=== PATIENT | female | born 1990 | race Caucasian/White ===

== ENCOUNTER 2018-12-02 10:26 | Emergency (ER) | payer OTHER ==
[~2018-12-02] VITALS: Ht 167.6 cm; Wt 72.0 kg
[~2018-12-02 10:26] MED LIST: PNV11TAB PO
[2018-12-02 10:29] VITALS: BP 148/97
[2018-12-02] MEDS ORDERED: HYDROCODONE/ACETAMINOPHEN 5-325 MG TABLET PO ONE (12:00)
== END 2018-12-02 12:21 | disposition home or self-care (01) ==
LOC: EMS 10:29
DX: K02.9 Dental caries, unspecified (principal)

== ENCOUNTER 2024-10-09 18:28 | Emergency (ER) | payer MEDICAID, OTHER ==
[~2024-10-09] VITALS: Ht 167.6 cm; Wt 75.0 kg
[2024-10-09 18:54] VITALS: BP 145/92; PULSE 74; RESP 20; TEMP 98.4; O2SAT 100
== END 2024-10-09 19:22 | disposition left against medical advice (07) ==
LOC: EMS 18:28
DX: F41.9 Anxiety disorder, unspecified (principal); R11.2 Nausea with vomiting, unspecified; Z53.21 Procedure and treatment not carried out due to patient leaving prior to being seen by health care provider